=== PATIENT | female | born 1990 | race Caucasian/White ===

== ENCOUNTER 2017-08-12 11:20 | Emergency (ER) | payer BC ==
[~2017-08-12] VITALS: Ht 165.1 cm; Wt 60.0 kg
[2017-08-12 11:24] VITALS: BP 107/58; PULSE 70; RESP 18; TEMP 97.6; O2SAT 100
--- NOTE | 2017-08-12 11:40 | PD ---
HPI Chief Complaint: Shroudman Problem/Complaint Time Seen by Provider: 11:30 Travel History International Travel<30 days: No Contact w/Intl Traveler<30days: No Traveled to known affect area: No History of Present Illness HPI 26yo F with no PMH presents to the ED with c/o vaginal bleeding after sexual intercourse today. Said she used a clitoral vibrator as well. Said her menstrual period ended yesterday. Said she felt lightheaded when she was standing up earlier when she was bleeding but no lightheadedness right now. Said she is wearing a panty liner and it is only a small amount of blood on it. Denies any fever, chest pain, sob, n/v, abdominal pain, vaginal discharge, dysuria, hematuria, focal weakness or numbness. PFSH Past Medical History Medical History: Denies Significant Hx ?: Not LMP: 08/05/17 Past Surgical History Surgical History: No Previous Surgery Social History Alcohol Use: No Tobacco Use: No Substance Use: No Allergies-Medications (Allergen,Severity, Reaction): Coded Allergies: No Known Allergies (Unverified , 08/12/17) Review of Systems Except as stated in HPI: all other systems reviewed are Neg Physical Exam Narrative GENERAL: 26yo F not in distress. SKIN: Focused skin assessment warm/dry. HEAD: Atraumatic. Normocephalic. EYES: Pupils equal and round. No scleral icterus. No injection or drainage. CARDIOVASCULAR: Regular rate and rhythm. No murmur appreciated. RESPIRATORY: No accessory muscle use. Clear to auscultation. Breath sounds equal bilaterally. GASTROINTESTINAL: Abdomen soft, non-tender, nondistended. No rebound tenderness or guarding. PELVIC: Small amount of brown, old blood from the cervical os. There is no laceration or active bleeding from the vaginal wall or labia majora or minora. No vaginal discharge. No CMT or adnexal tenderness bilaterally. MUSCULOSKELETAL: No obvious deformities. No clubbing. No cyanosis. No edema. NEUROLOGICAL: Awake and alert. No obvious cranial nerve deficits. Motor grossly within normal limits. Normal speech. PSYCHIATRIC: Appropriate mood and affect; insight and judgment normal. Data Data Last Documented VS Vital Signs Date Time Temp Pulse Resp B/P (MAP) Pulse Ox O2 Delivery O2 Flow Rate FiO2 08/12/17 11:50 108/58 (75) 100/57 (71) 115/61 (79) 08/12/17 11:24 97.6 70 18 100 Orders Orders Orthostatic Vital Signs (08/12/17 11:52) Blood Glucose (08/12/17 11:52) Ed Urine Pregnancytest Poc (08/12/17 12:02) [facility] Medical Decision Making Medical Screen Exam Complete: Yes Emergency Medical Condition: Yes Differential Diagnosis Vaginal bleeding from menstruation vs. bleeding from sexual intercourse vs. abnormal uterine bleeding vs. vaginal laceration Narrative Course 26yo F here with complaint of vaginal bleeding after sexual intercourse today. Pt had felt lightheaded prior to coming. Orthostatic vital signs negative. Pt said she no longer felt lightheaded when she was standing up. Urine negative. Blood glucose 94. Said she has not eaten all day. Pt is to follow up with her PHYSICAL THERAPY RESIDENT. Return precautions given. Diagnosis Primary Impression: Vaginal bleeding Patient Instructions: General Instructions Departure Forms: Tests/Procedures Additional Instructions: Please follow up with your podopediatrician in 3-7 days. Return to the ED if you symptoms worsen. Med/Other Pt SpecificInfo: No Change to Meds Disposition: 01 DISCHARGE HOME Condition: Stable Patience Ponce DO Aug 12, 2017 11:40
[2017-08-12 11:50] VITALS: BP_SYST 100; BP_SYST 108; BP_SYST 115; BP_DIAS 57; BP_DIAS 58; BP_DIAS 61
== END 2017-08-12 12:29 | disposition home or self-care (01) ==
LOC: NEPD 11:20
DX: N93.9 Abnormal uterine and vaginal bleeding, unspecified (principal)
CPT/HCPCS: 84703; 99284